=== PATIENT | female | born 1980 | race Caucasian/White ===

== ENCOUNTER 2020-07-06 20:39 | Emergency (ER) | payer OTHER, SELFPAY ==
--- NOTE | ~2020-07-06 | XR_ITS ---
EXAMINATION: XR wrist LT w scaphoid EXAM DATE: 07/06/2020 21:43 INDICATION: Initial encounter following injury, with pain of the left wrist. TECHNIQUE: Left wrist frontal, frontal with ulnar deviation, oblique and lateral projections obtained and reviewed. There is no prior study for comparison. FINDINGS: Left wrist scapholunate joint space is maintained. There are no acute fractures or dislocat ions identified. There is no subcutaneous gas. The soft tissue is unremarkable. Ring on 4th obinna shultz IMPRESSION: No acute osseous findings. Reviewed, dictated and finalized at location A. IMPRESSION: No acute osseous findings.
[2020-07-06 20:50] VITALS: BP 178/90; PULSE 98; RESP 18; TEMP 36.9; O2SAT 98
--- NOTE | 2020-07-06 21:27 | ED_ITS ---
HPI - Extremity Injury (Upper) General Chief Complaint: Extremity Injury, Upper Stated Complaint: wrist pain Source: patient Mode of arrival: ambulatory Limitations: no limitations History of Present Illness HPI narrative: In march of this year pt injured her wrist. She was seen at [facility] and they told her to see a pcp or ortho doc to have it re- xrayed or MRI if she continued to have pain. Pt states she still has pain, and she would like her MRI. I told her that she still needs to seek care through a PCP for advanced imaging. complaint: injury to: left and wrist Onset (ago): month(s) Other Extremity Injury: Left: wrist Other injuries: none Handedness: left Relieving factors: none Exacerbating factors: none Associated symptoms: denies other symptoms Related Data Home Medications Medication Instructions Recorded Confirmed doxepin 50 mg PO DAILY 07/06/20 07/06/20 Allergies Allergy/AdvReac Type Severity Reaction Status Date / Time NUT FLAVOR Allergy Mild Uncoded 04/12/19 15:00 Review of Systems Review of Systems: All systems reviewed & are unremarkable except as noted in HPI and below Musculoskeletal: Musculoskeletal: Reports as per HPI [facility] Family History Family History Mother Cerebrovascular accident Family history of coronary artery disease Father Family history of coronary artery disease Social History Social History Smoking status: Current every day smoker Exam Const: General: no acute distress and alert Nutritional Appearance: well nourished Orientation/consciousness: patient oriented x3 HENMT: Head: normal to inspection Neck: Neck: normal visual inspection Chest: Chest palpation & inspection: normal inspection of the chest Resp: Effort & Inspection: normal respiratory effort Auscultation: clear to auscultation bilaterally Cardio: Rate: regular rate Rhythm: regular rhythm GI: GI Palp: Yes Soft to palpation, No Tenderness to palpation present (GI) and No Guarding due to palpation present (GI) Skin: General skin exam: normal color Rashes: no rashes Neuro: General: patient oriented x3 and moves all extremities Extrem: Other: tender over left scaphoid. Psych: Appearance: grossly normal Mental Status: mental status grossly normal Affect: Anxious affect present Discharge Plan Discharge Clinical Impression: Sprain and strain of wrist Patient Disposition: Home, Self-Care Condition: Stable Instructions: Antibiotic Form Additional Instructions: Call the local primary care doctors to see if one of them takes your insurance. You can also call [facility] ortho department, at [phone]. Another option is [facility] at [phone] Prescriptions: No Action doxepin 50 mg Capsule 50 mg PO DAILY RF: 0 Follow-up/Referrals: UNKNOWN,DOCTOR [Primary Care Provider] - Time of Disposition: 21:56
== END 2020-07-06 22:01 | disposition home or self-care (01) ==
PROVIDERS: Emergency Provider Emergency Medicine
DX: S63.502A Unspecified sprain of left wrist, initial encounter (principal)
CPT/HCPCS: 73110; 99282; 99283

== ENCOUNTER 2021-07-01 20:09 | Emergency (ER) | payer OTHER, SELFPAY ==
[2021-07-01 20:10] VITALS: BP 137/98; PULSE 107; RESP 20; TEMP 38.3; O2SAT 98
[2021-07-01 20:46] LABS: Influenza Control Valid (Valid); SARS-CoV-2 Ag Positive (Negative)
--- NOTE | 2021-07-01 20:49 | ED.GENADULT ---
HPI - General Adult General Chief complaint: Upper Respiratory Infection Stated complaint: body ache no taste or smell Source: patient Mode of arrival: ambulatory History of Present Illness HPI narrative: This is a 40-year-old female that has a cough congestion currently no shortness of breath has low-grade fever has been exposed to COVID and has a nonproductive cough no chest pain no audible wheezing no nausea vomiting no diarrhea constipation. Onset (ago): day(s) Related Data Allergies Allergy/AdvReac Type Severity Reaction Status Date / Time NUT FLAVOR Allergy Mild Uncoded 04/12/19 15:00 Review of Systems Review of Systems: All systems reviewed & are unremarkable except as noted in HPI and below PMFSH Past Medical History Medical History Depression Family History Family History Mother Cerebrovascular accident Family history of coronary artery disease Father Family history of coronary artery disease Social History Social History Smoking status: Current every day smoker Gender identity (if verbalized by the patient): Female Exam Const: General: no acute distress and alert Orientation/consciousness: patient oriented x3 HENMT: Head: normal to inspection Eyes: Conjunctivae: conjunctivae normal Pupils: Equal, round and reactive pupils present Neck: Neck: normal visual inspection, no lymphadenopathy and no meningeal signs Chest: Chest palpation & inspection: normal inspection of the chest Resp: Effort & Inspection: normal respiratory effort Auscultation: clear to auscultation bilaterally Cardio: Rate: regular rate Rhythm: regular rhythm GI: GI Palp: Yes Soft to palpation Percussion: Yes normal to percussion : General: Yes no CVA tenderness Urinary Catheter: Urinary Catheter: patent and draining Back/Spine/Pelvis: Back: no CVA tenderness Skin: General skin exam: normal color Rashes: no rashes Neuro: General: patient oriented x3 Course Course Emergency Course: patient resting comfortably cough that is nonproductive advised that she is COVID positive and she self isolate and quarantine. Vital Signs Vital signs: Vital Signs Temperature 38.3 C H 07/01/21 20:10 Pulse Rate 107 H 07/01/21 20:10 Respiratory Rate 07/01/21 20:10 Blood Pressure 137/98 H 07/01/21 20:10 Pulse Oximetry 98 07/01/21 20:10 Temperature 38.3 C H 07/01/21 20:10 Pulse Rate 107 H 07/01/21 20:10 Respiratory Rate 20 07/01/21 20:10 Blood Pressure 137/98 H 07/01/21 20:10 Pulse Oximetry 98 07/01/21 20:10 Medical Decision Making Vital Signs Vital Signs: Vital Signs Temperature 38.3 C H 07/01/21 20:10 Pulse Rate 107 H 07/01/21 20:10 Respiratory Rate 20 07/01/21 20:10 Blood Pressure 137/98 H 07/01/21 20:10 Pulse Oximetry 98 07/01/21 20:10 Temperature 38.3 C H 07/01/21 20:10 Pulse Rate 107 H 07/01/21 20:10 Respiratory Rate 07/01/21 20:10 Blood Pressure 137/98 H 07/01/21 20:10 Pulse Oximetry 98 07/01/21 20:10 Lab Data Labs: Lab Results 07/01/21 07/01/21 Range/Units 20:13 20:13 Influenza Type A Ag Negative (Negative) Influenza Type B Ag Negative (Negative) SARS-CoV-2 Ag (Rapid) Positive A (Negative) Critical Care Time Critical Care Time Critical Care Time: No Discharge Plan Discharge Clinical Impression: COVID-19 Patient Disposition: Home, Self-Care Condition: Stable Instructions: Antibiotic Form, COVID-19 (Coronavirus Disease 2019) (ED) Additional Instructions: follow-up with primary care physician, take medicine as prescribed. Prescriptions: New albuterol sulfate [ProAir HFA] 90 mcg/actuation HFA aerosol inhaler 2 puff inhalation QID PRN (Reason: shortness of breath or wheezing) Qty: 6.7 RF: 0 benzonatate [Te
[2021-07-01 21:04] VITALS: BP 147/98; PULSE 89; RESP 20; TEMP 38.3; O2SAT 98
== END 2021-07-01 21:05 | disposition home or self-care (01) ==
PROVIDERS: Emergency Provider Emergency Medicine
DX: U07.1 COVID-19 (principal)
CPT/HCPCS: 87426; 87804; 99283; C9803